=== PATIENT | female | born 1950 | race African-American/Black ===

== ENCOUNTER 2019-07-05 08:40 | Inpatient (IN) | payer MEDICARE, MEDICAID ==
[~2019-07-05] VITALS: Ht 152.4 cm; Wt 104.3 kg
[~2019-07-05 08:40] MED LIST: ASPI-1393 PO; ATOR40TA70 PO; B12/1TAB PO; BACL-141 PO; CELE200C PO; CHLO25TA27 PO; DICL75TA5 PO; DONE10TA43 PO; DOXA2TAB PO; FURO-151 PO; GABA-531 PO; HYDR-3933 PO; ISOS20TA8 PO; ISOS40TA17 PO; LISI40TA4 PO; NIFE30TA8 PO; NIFE60TA78; POTA10CA42 PO; POTA8TAB4; PROT40 PO; QUET50TA PO; SERT-112 PO; ZOLP10TA6 PO
[2019-07-05] MEDS ORDERED: SODIUM CHLORIDE 0.9% 1000ML BAG (SEPSIS BOLUS) IV ONE (09:00)
[2019-07-05] MEDS ORDERED: VANCOMYCIN 1 G PREMIX 200 ML IV ONE (09:00)
[2019-07-05] MEDS ORDERED: PIPERACILLIN/TAZ 3.375G PREMIX 50 ML IV ONE (09:00)
[2019-07-05 09:28] LABS: BASOPHILS % 0.4 % (0.0-2.0); HEMATOCRIT. 28.9 % (36.0-48.0); HEMOGLOBIN. 9.2 g/dL (12.0-16.0); LYMPHOCYTES % 16.5 % (20.0-50.0); MEAN CORPUSCULAR HEMOGLOBIN 26.4 pg (28.0-32.0); MEAN CORPUSCULAR VOLUME 82.6 fL (81.0-99.0); MEAN PLATELET VOLUME 8.2 fl (7.4-10.4); MONOCYTES % 4.7 % (2.0-8.0); NEUTROPHILS % 77.4 % (40.0-76.0); PLATELET 255 x1000/uL (130-400); RED CELL DISTRIBUTION WIDTH 16.8 % (11.6-14.6)
[2019-07-05 09:30] LABS: CHLORIDE 109 mEq/L (98-107)
[2019-07-05 10:54] LABS: CLARITY URINE CLOUDY (CLEAR); COLOR URINE YELLOW (YELLOW); KETONES URINE NEGATIVE (NEGATIVE); LEUKOCYTE ESTERASE URINE NEGATIVE (NEGATIVE); NITRITE URINE NEGATIVE (NEGATIVE); OCCULT BLOOD URINE NEGATIVE (NEGATIVE); PROTEIN URINE NEGATIVE (NEGATIVE); SPECIFIC GRAVITY URINE 1.011 (1.005-1.030)
[2019-07-05] MEDS ORDERED: CLONIDINE 0.1MG TABLET PO PRN (11:15)
[2019-07-05] MEDS ORDERED: ACETAMINOPHEN 325MG TABLET PO PRN (11:15)
[2019-07-05] MEDS ORDERED: DOCUSATE SODIUM 100MG CAPSULE PO PRN (11:15)
[2019-07-05 12:00] VITALS: BP 153/69
[2019-07-05 12:43] VITALS: BP 153/69
[2019-07-05] MEDS: IPRATROPIUM/ALBUTEROL 0.5-3(2.5)MG/3ML NEB HHN SCH ×2 (12:55→21:09)
[2019-07-05] MEDS ORDERED: COM10 MT (13:55)
[2019-07-05] MEDS ORDERED: PRED10TA23 MT (13:55)
[2019-07-05] MEDS ORDERED: PIPERACILLIN/TAZ 3.375G PREMIX 50 ML IV SCH (14:00)
[2019-07-05] MEDS ORDERED: PNEUMOCOCCAL 23-VAL P-SAC VAC 0.5 ML IM ONE (15:00)
[2019-07-05] MEDS: HYDROCODONE/ACETAMINOPHEN 10/325MG TABLET PO PRN ×2 (15:17→23:22)
[2019-07-05] MEDS: ENOXAPARIN 40MG/0.4ML SYR SUBCUT SCH (15:18)
[2019-07-05] MEDS: SODIUM CHLORIDE 0.45% 1,000 ML IV SCH (15:20)
[2019-07-05 16:00] VITALS: BP 107/44
[2019-07-05] MEDS: PIPERACILLIN/TAZOBACTAM 2.25 G in DEXTROSE 5% WATER 50 ML IV SCH (18:14)
[2019-07-05 20:44] VITALS: BP 121/61
[2019-07-06 00:44] VITALS: BP 124/61
[2019-07-06] MEDS: SODIUM CHLORIDE 0.45% 1,000 ML IV SCH ×2 (01:04→14:00)
[2019-07-06] MEDS: PIPERACILLIN/TAZOBACTAM 2.25 G in DEXTROSE 5% WATER 50 ML IV SCH ×3 (02:11→17:28)
[2019-07-06] MEDS: IPRATROPIUM/ALBUTEROL 0.5-3(2.5)MG/3ML NEB HHN SCH ×4 (02:24→20:43)
[2019-07-06 04:40] VITALS: BP 125/63
[2019-07-06 06:55] LABS: CHLORIDE 109 mEq/L (98-107)
[2019-07-06 07:16] LABS: BASOPHILS % 0.4 % (0.0-2.0); EOSINOPHILS % 1.4 % (0.0-5.0); HEMATOCRIT. 25.9 % (36.0-48.0); HEMOGLOBIN. 8.4 g/dL (12.0-16.0); LYMPHOCYTES % 25.7 % (20.0-50.0); MEAN CORPUSCULAR HEMOGLOBIN 26.2 pg (28.0-32.0); MEAN CORPUSCULAR VOLUME 81.2 fL (81.0-99.0); MEAN PLATELET VOLUME 8.5 fl (7.4-10.4); MONOCYTES % 8.1 % (2.0-8.0); NEUTROPHILS % 64.4 % (40.0-76.0); PLATELET 238 x1000/uL (130-400); RED CELL DISTRIBUTION WIDTH 16.4 % (11.6-14.6)
[2019-07-06 07:35] LABS: LDL CHOLESTEROL 42 mg/dL (5-100)
[2019-07-06 07:37] LABS: HDL CHOLESTEROL 50 mg/dL (40-59)
[2019-07-06 08:43] VITALS: BP 115/85
[2019-07-06 08:54] VITALS: BP 133/68
[2019-07-06] MEDS: ONDANSETRON HCL 4MG/2ML INJ IV PRN ×2 (09:41→20:35)
[2019-07-06] MEDS ORDERED: SODIUM BICARBONATE 4% (2.4MEQ) 5ML VIAL IV ONE (12:14)
[2019-07-06] MEDS ORDERED: LIDOCAINE HCL 1% 20ML VIAL (Pyxis) INJ ONE (12:15)
[2019-07-06 12:32] LABS: TOTAL IRON BINDING CAPACITY 196 ug/dL (250-450)
[2019-07-06] MEDS: ENOXAPARIN 40MG/0.4ML SYR SUBCUT SCH (13:59)
[2019-07-06] MEDS: HYDROCODONE/ACETAMINOPHEN 10/325MG TABLET PO PRN ×2 (14:00→21:23)
[2019-07-06 16:20] VITALS: BP 162/75
[2019-07-06 16:30] LABS: PARTIAL THROMBOPLASTIN TIME 25.2 sec (23.4-31.0); PROTHROMBIN TIME 10.5 sec (9.6-11.0)
[2019-07-06 20:00] VITALS: BP 137/58
[2019-07-06] MEDS ORDERED: ZOLPIDEM TARTRATE 5MG TABLET PO PRN (21:00)
[2019-07-07] MEDS: SODIUM CHLORIDE 0.45% 1,000 ML IV SCH (00:34)
[2019-07-07] MEDS: IPRATROPIUM/ALBUTEROL 0.5-3(2.5)MG/3ML NEB HHN SCH ×3 (00:37→09:00)
[2019-07-07 00:48] VITALS: BP 134/57
[2019-07-07] MEDS: PIPERACILLIN/TAZOBACTAM 2.25 G in DEXTROSE 5% WATER 50 ML IV SCH (01:30)
[2019-07-07 04:00] VITALS: BP 143/79
[2019-07-07 08:00] VITALS: BP 151/90
[2019-07-07 10:24] LABS: BASOPHILS % 0.4 % (0.0-2.0); EOSINOPHILS % 1.1 % (0.0-5.0); HEMATOCRIT. 29.6 % (36.0-48.0); HEMOGLOBIN. 9.4 g/dL (12.0-16.0); LYMPHOCYTES % 11.4 % (20.0-50.0); MEAN CORPUSCULAR HEMOGLOBIN 25.8 pg (28.0-32.0); MEAN CORPUSCULAR VOLUME 81.1 fL (81.0-99.0); MEAN PLATELET VOLUME 8.8 fl (7.4-10.4); MONOCYTES % 7.1 % (2.0-8.0); PLATELET 261 x1000/uL (130-400); RED BLOOD CELL COUNT 3.65 mill/uL (4.2-5.4); RED CELL DISTRIBUTION WIDTH 16.7 % (11.6-14.6)
[2019-07-07] MEDS: ENOXAPARIN 40MG/0.4ML SYR SUBCUT SCH (12:00)
[2019-07-07 12:04] VITALS: BP 151/66
[2019-07-07 12:40] VITALS: BP 164/81
[2019-07-07 13:49] VITALS: BP 150/80
== END 2019-07-07 13:30 | disposition home or self-care (01) | DRG 73 ==
LOC: ER 08:40 → 6WST 10:39 → EDBEDREQTM 10:44 → EDBEDREQ 10:44 → EDBEDREQSVC 10:44 → ENRESERV 11:05
PROVIDERS: ADMIT Internal Medicine Nephrology; ATTEND Internal Medicine Nephrology
PROC: 02HV33Z Insertion of Infusion Device into Superior Vena Cava, Percutaneous Approach (ICD-10-PCS; principal; 2019-07-06)
PROC: B548ZZA Ultrasonography of Superior Vena Cava, Guidance (ICD-10-PCS; 2019-07-06)
DX: G90.8 Other disorders of autonomic nervous system (principal); E43 Unspecified severe protein-calorie malnutrition; N39.0 Urinary tract infection, site not specified; Z68.41 Body mass index [BMI] 40.0-44.9, adult; I69.354 Hemiplegia and hemiparesis following cerebral infarction affecting left non-dominant side; I69.351 Hemiplegia and hemiparesis following cerebral infarction affecting right dominant side; D64.9 Anemia, unspecified; E66.01 Morbid (severe) obesity due to excess calories; E86.9 Volume depletion, unspecified; I10 Essential (primary) hypertension; M13.0 Polyarthritis, unspecified; Z82.49 Family history of ischemic heart disease and other diseases of the circulatory system; Z96.649 Presence of unspecified artificial hip joint; I95.1 Orthostatic hypotension; E11.9 Type 2 diabetes mellitus without complications; E78.00 Pure hypercholesterolemia, unspecified; E78.5 Hyperlipidemia, unspecified; I25.10 Atherosclerotic heart disease of native coronary artery without angina pectoris; Z90.710 Acquired absence of both cervix and uterus; Z79.84 Long term (current) use of oral hypoglycemic drugs
CPT/HCPCS: 36415; 36573; 71045; 74176; 80048; 80061; 81003; 83540; 83550; 83605; 84484; 90732; 93005; 93306; 93880; 93970; 94640; 97116; 97162; 97166; 97530; 97535; 99285; C1725; C1893; J1650; J2405; J2543; J3370; J3490; J7030; J7060; J7620

== ENCOUNTER 2019-07-10 12:58 | Emergency (ER) | payer MEDICARE, MEDICAID ==
[~2019-07-10] VITALS: Ht 160 cm; Wt 101.0 kg
[~2019-07-10 12:58] MED LIST changes: -B12/1TAB PO; -CHLO25TA27 PO; +COM10 MT; -DICL75TA5 PO; -DONE10TA43 PO; -FURO-151 PO; -NIFE30TA8 PO; -POTA8TAB4; +PRED10TA23 MT; -SERT-112 PO
[2019-07-10] MEDS ORDERED: SODIUM CHLORIDE 0.9% 1,000 ML IV ONE (13:22)
[2019-07-10 15:19] VITALS: BP 147/80
== END 2019-07-10 15:39 | disposition left against medical advice (07) ==
LOC: ER 12:58
DX: R55 Syncope and collapse (principal); M19.90 Unspecified osteoarthritis, unspecified site; I25.10 Atherosclerotic heart disease of native coronary artery without angina pectoris; E11.9 Type 2 diabetes mellitus without complications; E78.00 Pure hypercholesterolemia, unspecified; Z88.6 Allergy status to analgesic agent; Z79.82 Long term (current) use of aspirin; Z90.710 Acquired absence of both cervix and uterus; Z96.649 Presence of unspecified artificial hip joint
CPT/HCPCS: 71045; 93005; 96360; 99284; J7030

== ENCOUNTER 2022-03-07 07:57 | Inpatient (IN) | payer MEDICARE, MEDICAID ==
[~2022-03-07] VITALS: Ht 162.6 cm; Wt 98.4 kg
[~2022-03-07 07:57] MED LIST changes: -ASPI-1393 PO; +ASPI-1497 PO; -GABA-531 PO; +GABA-532 PO; +LISI40TA13 PO; -LISI40TA4 PO
[2022-03-07] MEDS ORDERED: ASPIRIN 81MG TABLET PO ONE (08:45)
[2022-03-07] MEDS ORDERED: NITROGLYCERIN 0.4MG TABLET SL SL PRN (08:45)
[2022-03-07 09:55] LABS: BASOPHILS % 0.7 % (0.0-2.0); EOSINOPHILS % 1.3 % (0.0-5.0); HEMATOCRIT. 30.3 % (36.0-48.0); HEMOGLOBIN. 9.4 g/dL (12.0-16.0); LYMPHOCYTES % 14.6 % (20.0-50.0); MEAN CORPUSCULAR HEMOGLOBIN 23.7 pg (28.0-32.0); MEAN CORPUSCULAR VOLUME 76.3 fL (81.0-99.0); MEAN PLATELET VOLUME 7.9 fl (7.4-10.4); NEUTROPHILS % 76.4 % (40.0-76.0); PLATELET 332 x1000/uL (130-400); RED BLOOD CELL COUNT 3.97 mill/uL (4.2-5.4); RED CELL DISTRIBUTION WIDTH 18.6 % (11.6-14.6)
[2022-03-07 10:03] LABS: CHLORIDE 111 mEq/L (98-107)
[2022-03-07] MEDS ORDERED: VANCOMYCIN 1G PREMIX 200 ML IV NR (14:45)
[2022-03-07] MEDS ORDERED: PIPERACILLIN/TAZ 3.375G PREMIX 50 ML IV NR (14:45)
[2022-03-07] MEDS ORDERED: IPRATROPIUM/ALBUTEROL 0.5-3(2.5)MG/3ML NEB NEB PRN (16:30)
[2022-03-07] MEDS ORDERED: CLONIDINE 0.1MG TABLET PO PRN (16:30)
[2022-03-07] MEDS ORDERED: DOCUSATE SODIUM 100MG CAPSULE PO PRN (16:30)
[2022-03-07] MEDS ORDERED: LORAZEPAM 0.5MG TABLET PO PRN (16:30)
[2022-03-07] MEDS ORDERED: DIPHENHYDRAMINE 50MG/ML VIAL IV PRN (16:30)
[2022-03-07] MEDS ORDERED: ONDANSETRON HCL 4MG/2ML INJ IV PRN (16:30)
[2022-03-07] MEDS ORDERED: NA PHOS,M-B/NA PHOS,DI-BA ENEMA 118ML PR PRN (16:30)
[2022-03-07] MEDS ORDERED: GUAIFENESIN 200MG/10ML SUGAR FREE UDC PO PRN (16:30)
[2022-03-07] MEDS ORDERED: MAGNESIUM/ALUMINUM HYDROXIDE/SIMETHICONE 30ML UDC PO PRN (16:30)
[2022-03-07] MEDS ORDERED: HYDRALAZINE 20MG/ML VIAL IV PRN (16:45)
[2022-03-07] MEDS ORDERED: DEXTROSE 50% WATER 50ML SYRINGE IV PRN (17:00)
[2022-03-07] MEDS ORDERED: LEVOFLOXACIN 500MG PREMIX 100 ML IV NR (17:30)
[2022-03-07] MEDS: INSULIN LISPRO 100 UNITS/ML SUBCUT SCH ×2 (18:20→21:00)
[2022-03-07] MEDS: BLOOD SUGAR DIAGNOSTIC STRIP TEST SCH ×2 (18:56→21:00)
[2022-03-07] MEDS: DILTIAZEM HCL 30MG TABLET PO SCH ×2 (19:10→23:35)
[2022-03-07 22:00] VITALS: BP 150/78
[2022-03-07] MEDS: FAMOTIDINE 20MG TABLET PO SCH (22:21)
[2022-03-07 22:30] VITALS: BP 150/78
[2022-03-07] MEDS: PIPERACILLIN/TAZOBACTAM 3.375 G in DEXTROSE 5% WATER 50 ML IV SCH (23:14)
[2022-03-08 02:37] LABS: CREATINE KINASE 22 IU/L (26-192); CREATINE KINASE MB FRACTION < 1.0 ng/mL (0.5-3.6)
[2022-03-08 04:00] VITALS: BP 153/79
[2022-03-08] MEDS ORDERED: MORPHINE SULFATE 2 MG/ML CPJ (NOT FOR IM USE) IV PRN (04:30)
[2022-03-08] MEDS: PIPERACILLIN/TAZOBACTAM 3.375 G in DEXTROSE 5% WATER 50 ML IV SCH (05:42)
[2022-03-08] MEDS: DILTIAZEM HCL 30MG TABLET PO SCH ×3 (05:43→18:00)
[2022-03-08] MEDS ORDERED: TEMAZEPAM 15MG CAPSULE PO PRN (06:00)
[2022-03-08] MEDS: INSULIN LISPRO 100 UNITS/ML SUBCUT SCH ×4 (06:30→21:00)
[2022-03-08] MEDS: BLOOD SUGAR DIAGNOSTIC STRIP TEST SCH ×4 (06:30→21:00)
[2022-03-08 06:38] LABS: BASOPHILS % 0.5 % (0.0-2.0); EOSINOPHILS % 1.1 % (0.0-5.0); HEMATOCRIT. 29.3 % (36.0-48.0); HEMOGLOBIN. 9.3 g/dL (12.0-16.0); LYMPHOCYTES % 17.4 % (20.0-50.0); MEAN CORPUSCULAR HEMOGLOBIN 24.1 pg (28.0-32.0); MEAN CORPUSCULAR VOLUME 76.1 fL (81.0-99.0); MEAN PLATELET VOLUME 7.7 fl (7.4-10.4); MONOCYTES % 4.9 % (2.0-8.0); NEUTROPHILS % 76.1 % (40.0-76.0); PLATELET 293 x1000/uL (130-400); RED BLOOD CELL COUNT 3.85 mill/uL (4.2-5.4); RED CELL DISTRIBUTION WIDTH 18.5 % (11.6-14.6)
[2022-03-08 07:00] LABS: CHLORIDE 109 mEq/L (98-107)
[2022-03-08 07:16] LABS: CREATINE KINASE 24 IU/L (26-192); CREATINE KINASE MB FRACTION < 1.0 ng/mL (0.5-3.6)
[2022-03-08 08:00] VITALS: BP 155/66
[2022-03-08] MEDS: ASPIRIN 81MG EC TABLET PO SCH (10:12)
[2022-03-08 11:32] LABS: BG BASE EXCESS -1.8 mmol/L (-2.0-2.0); BG CARBOXYHEMOGLOBIN 0.3 % (0.5-1.5); BG FRACTION INSPIRED OXYGEN 21; BG METHEMOGLOBIN 0.3 % (0.0-1.5); BG OXYHEMOGLOBIN 93.4 % (94.0-97.0); BG PCO2 33.9 mmHg (35.0-45.0); BG PH 7.431 (7.350-7.450); BG PO2 70.3 mmHg (75.0-100.0); BG SAMPLE SITE RIGHT RADIAL; BG TOTAL HEMOGLOBIN 10.1 g/dL (12.0-18.0); BG VENT MODE ROOM AIR
[2022-03-08 12:00] VITALS: BP 143/78
[2022-03-08] MEDS ORDERED: ALBU90AE INH (15:13)
[2022-03-08] MEDS ORDERED: HYDR-4001 MT (15:13)
[2022-03-08] MEDS ORDERED: LEVO250T58 MT (15:13)
[2022-03-08 16:00] VITALS: BP 159/71
[2022-03-08] MEDS ORDERED: LEVOFLOXACIN 250MG PREMIX 50 ML IV SCH (17:30)
[2022-03-08 20:00] VITALS: BP 128/64
[2022-03-08] MEDS: FAMOTIDINE 20MG TABLET PO SCH (22:21)
[2022-03-09] VITALS: BP 117/52
[2022-03-09 04:00] VITALS: BP 139/61
[2022-03-09] MEDS: DILTIAZEM HCL 30MG TABLET PO SCH ×3 (06:17→13:34)
[2022-03-09] MEDS: BLOOD SUGAR DIAGNOSTIC STRIP TEST SCH ×2 (07:09→12:10)
[2022-03-09] MEDS: INSULIN LISPRO 100 UNITS/ML SUBCUT SCH ×2 (07:10→12:40)
[2022-03-09 08:00] VITALS: BP_SYST 140; BP_SYST 154; BP_DIAS 62; BP_DIAS 83
[2022-03-09] MEDS: ASPIRIN 81MG EC TABLET PO SCH (09:29)
[2022-03-09 12:00] VITALS: BP 148/80
[2022-03-09] MEDS ORDERED: LEVOFLOXACIN 750MG PREMIX 150 ML IV SCH (15:00)
[2022-03-09 15:34] VITALS: BP 151/73
== END 2022-03-09 16:16 | disposition home or self-care (01) | DRG 205 ==
LOC: ER 07:57 → 8WST 15:24 → SUPCPDRO 16:43 → ENRESERV 16:53
PROVIDERS: ADMIT Internal Medicine; ATTEND Internal Medicine
DX: S22.32XA Fracture of one rib, left side, initial encounter for closed fracture (principal); J18.9 Pneumonia, unspecified organism; D64.9 Anemia, unspecified; E11.9 Type 2 diabetes mellitus without complications; E78.5 Hyperlipidemia, unspecified; I10 Essential (primary) hypertension; I27.20 Pulmonary hypertension, unspecified; I49.8 Other specified cardiac arrhythmias; I25.10 Atherosclerotic heart disease of native coronary artery without angina pectoris; E66.01 Morbid (severe) obesity due to excess calories; M19.90 Unspecified osteoarthritis, unspecified site; E78.00 Pure hypercholesterolemia, unspecified; Z90.710 Acquired absence of both cervix and uterus; Z88.8 Allergy status to other drugs, medicaments and biological substances; Z83.3 Family history of diabetes mellitus; Z68.37 Body mass index [BMI] 37.0-37.9, adult; W18.30XA Fall on same level, unspecified, initial encounter; Y93.89 Activity, other specified; Y92.89 Other specified places as the place of occurrence of the external cause; Y99.8 Other external cause status; R77.8 Other specified abnormalities of plasma proteins
CPT/HCPCS: 36415; 36600; 71045; 71110; 72170; 73030; 78582; 80053; 82375; 82550; 82553; 82805; 82962; 83880; 84443; 84484; 85025; 86850; 86900; 87077; 87804; 93005; 93306; 97162; 99285; A9558; J1956; J2270; J2405; J2543; J3370; J7060

== ENCOUNTER 2022-04-18 12:59 | Inpatient (IN) | payer MEDICARE, MEDICAID ==
[~2022-04-18] VITALS: Ht 152.4 cm; Wt 96.2 kg
[~2022-04-18 12:59] MED LIST changes: +ALBU90AE INH; +HYDR-4001 MT; -ISOS20TA8 PO; +LEVO250T43 MT; -LISI40TA13 PO; -POTA10CA42 PO; -PRED10TA23 MT
[2022-04-18 14:47] LABS: BASOPHILS % 0.6 % (0.0-2.0); EOSINOPHILS % 0.8 % (0.0-5.0); LYMPHOCYTES % 9.8 % (20.0-50.0); MEAN CORPUSCULAR HEMOGLOBIN 22.8 pg (28.0-32.0); MEAN CORPUSCULAR VOLUME 74.5 fL (81.0-99.0); MEAN PLATELET VOLUME 7.8 fl (7.4-10.4); NEUTROPHILS % 84.8 % (40.0-76.0); PLATELET 380 x1000/uL (130-400); RED BLOOD CELL COUNT 2.88 mill/uL (4.2-5.4); RED CELL DISTRIBUTION WIDTH 19.2 % (11.6-14.6)
[2022-04-18 14:58] LABS: HEMATOCRIT. 21.5 % (36.0-48.0); HEMOGLOBIN. 6.6 g/dL (12.0-16.0)
[2022-04-18 15:03] LABS: CHLORIDE 108 mEq/L (98-107)
[2022-04-18 22:55] VITALS: BP 152/80
[2022-04-19] MEDS ORDERED: HYDROCODONE/ACETAMINOPHEN 5/325MG TABLET PO PRN (01:15)
[2022-04-19] MEDS ORDERED: ZOLPIDEM TARTRATE 5MG TABLET PO NR (01:30)
[2022-04-19 04:00] VITALS: BP 167/73
[2022-04-19] MEDS: CLONIDINE 0.1MG TABLET PO PRN (05:35)
[2022-04-19 08:00] VITALS: BP 145/74
[2022-04-19 12:00] VITALS: BP 143/76
[2022-04-19 12:21] LABS: CHLORIDE 107 mEq/L (98-107)
[2022-04-19 12:31] LABS: HDL CHOLESTEROL 65 mg/dL (40-59); LDL CHOLESTEROL 55 mg/dL (5-100)
[2022-04-19 12:42] LABS: BASOPHILS % 0.4 % (0.0-2.0); EOSINOPHILS % 1.2 % (0.0-5.0); HEMATOCRIT. 23.7 % (36.0-48.0); HEMOGLOBIN. 7.5 g/dL (12.0-16.0); LYMPHOCYTES % 15.2 % (20.0-50.0); MEAN CORPUSCULAR HEMOGLOBIN 24.5 pg (28.0-32.0); MEAN CORPUSCULAR VOLUME 77.4 fL (81.0-99.0); NEUTROPHILS % 79.2 % (40.0-76.0); PLATELET 334 x1000/uL (130-400); RED BLOOD CELL COUNT 3.06 mill/uL (4.2-5.4)
[2022-04-19 16:00] VITALS: BP 139/75
[2022-04-19 20:00] VITALS: BP 156/72
[2022-04-19] MEDS ORDERED: NALOXONE HCL 0.4MG/ML VIAL IV PRN (20:00)
[2022-04-19] MEDS ORDERED: NIFEDIPINE XL 60MG TAB PO SCH (21:00)
[2022-04-19] MEDS ORDERED: ZOLPIDEM TARTRATE 5MG TABLET PO SCH (21:00)
[2022-04-20] VITALS (9 sets, daily range): BP systolic 110–163; BP diastolic 61–98
[2022-04-20] MEDS: CLONIDINE 0.1MG TABLET PO PRN (01:08)
[2022-04-20 06:19] LABS: HEMATOCRIT 28.1 % (36.0-48.0); HEMOGLOBIN 9.1 g/dL (12.0-16.0)
== END 2022-04-20 15:40 | disposition home or self-care (01) | DRG 812 ==
LOC: ER 12:59 → 6WST 16:36 → ENRESERV 21:47 → ER 04-19 01:42
PROVIDERS: ADMIT Internal Medicine; ATTEND Internal Medicine
PROC: 30233N1 Transfusion of Nonautologous Red Blood Cells into Peripheral Vein, Percutaneous Approach (ICD-10-PCS; principal; 2022-04-18)
DX: D64.9 Anemia, unspecified (principal); E78.00 Pure hypercholesterolemia, unspecified; J44.9 Chronic obstructive pulmonary disease, unspecified; F32.A Depression, unspecified; K46.9 Unspecified abdominal hernia without obstruction or gangrene; E11.9 Type 2 diabetes mellitus without complications; Z86.73 Personal history of transient ischemic attack (TIA), and cerebral infarction without residual deficits; Z91.81 History of falling; Z88.1 Allergy status to other antibiotic agents; Z82.49 Family history of ischemic heart disease and other diseases of the circulatory system; Z90.710 Acquired absence of both cervix and uterus; Z96.649 Presence of unspecified artificial hip joint; Z96.659 Presence of unspecified artificial knee joint; K44.9 Diaphragmatic hernia without obstruction or gangrene; I11.0 Hypertensive heart disease with heart failure; I50.9 Heart failure, unspecified
CPT/HCPCS: 36415; 71045; 80048; 80053; 80061; 83036; 83880; 84484; 85014; 85018; 85025; 86850; 86870; 86900; 86920; 93005; 99291; P9016

== ENCOUNTER 2024-06-09 13:01 | Inpatient (IN) | payer MEDICARE, MEDICAID ==
[~2024-06-09] VITALS: Ht 162.6 cm; Wt 86.6 kg
[~2024-06-09 13:01] MED LIST changes: -BACL-141 PO; -CELE200C PO; -COM10 MT; +CYCL5TAB PO; +DOXA-14 PO; -DOXA2TAB PO; +ESCI-7 MT; +LANS30CA55 MT; -LEVO250T43 MT; +LISI40TA13 PO; +NIFE-49; -NIFE60TA78; -PROT40 PO; -ZOLP10TA6 PO
[2024-06-09 15:35] LABS: BASOPHILS % 0.5 % (0.0-2.0); EOSINOPHILS % 6.4 % (0.0-5.0); HEMATOCRIT. 33.9 % (36.0-48.0); LYMPHOCYTES % 27.6 % (20.0-50.0); MEAN CORPUSCULAR HEMOGLOBIN 29.5 pg (28.0-32.0); MEAN CORPUSCULAR HGB CONC 32.4 g/dL (31.0-37.0); MEAN CORPUSCULAR VOLUME 91.1 fL (81.0-99.0); MEAN PLATELET VOLUME 8.9 fl (7.4-10.4); MONOCYTES % 6.8 % (2.0-8.0); NEUTROPHILS % 58.7 % (40.0-76.0); PLATELET 180 x1000/uL (130-400); RED BLOOD CELL COUNT 3.73 mill/uL (4.2-5.4); RED CELL DISTRIBUTION WIDTH 14.7 % (11.6-14.6); WHITE BLOOD COUNT 4.7 x1000/uL (4.5-11.0)
[2024-06-09 15:39] LABS: CHLORIDE 108 mEq/L (98-107); SODIUM 141 mEq/L (136-145)
[2024-06-09 15:40] LABS: CALCIUM 9.1 mg/dL (8.7-10.4); CARBON DIOXIDE 26 mEq/L (21-32)
[2024-06-09 15:45] LABS: GLUCOSE 107 mg/dL (70-105); UREA NITROGEN BLOOD 23 mg/dL (9-23)
[2024-06-09 15:47] LABS: ALANINE AMINOTRANSFERASE 19 IU/L (10-49); ALBUMIN 3.5 g/dL (3.2-4.8); ASPARTATE AMINOTRANSFERASE 26 IU/L (<34); BILIRUBIN TOTAL 0.4 mg/dL (0.1-1.0); CREATININE 1.6 mg/dL (0.6-1.0); PROTEIN TOTAL 5.9 g/dL (6.0-8.3)
[2024-06-09 15:50] LABS: TROPONIN I HIGH SENSITIVITY 99 ng/L (3.0-34)
[2024-06-09 15:51] LABS: INR 0.9; PROTHROMBIN TIME 10.5 sec (9.6-11.0)
[2024-06-09 19:09] LABS: TROPONIN I HIGH SENSITIVITY 102 ng/L (3.0-34)
[2024-06-09] MEDS ORDERED: POTASSIUM CHLORIDE 20MEQ TABLET SR PO ONE (19:15)
[2024-06-09] MEDS ORDERED: ASPIRIN 325MG TABLET PO ONE (19:15)
[2024-06-09] MEDS: ASPIRIN 325MG TABLET PO NR (19:15)
[2024-06-09] MEDS: POTASSIUM CHLORIDE 20MEQ TABLET SR PO NR (19:15)
[2024-06-10] MEDS ORDERED: ONDANSETRON HCL 4MG/2ML INJ IV PRN (10:00)
[2024-06-10] MEDS: HYDRALAZINE 20MG/ML VIAL IV NR (10:46)
[2024-06-10] MEDS: POTASSIUM CHLORIDE 20MEQ TABLET SR PO NR (12:26)
[2024-06-10] MEDS: NIFEDIPINE XL 90MG TAB PO SCH (12:27)
[2024-06-10 13:00] VITALS: BP 186/86; PULSE 85; RESP 18; TEMP 36.55848; O2SAT 98
[2024-06-10 14:34] VITALS: BP 187/86; PULSE 83; RESP 18; TEMP 35.8064
[2024-06-10 16:00] VITALS: BP 162/85; PULSE 95; RESP 20; TEMP 36.44736; O2SAT 98
[2024-06-10] MEDS: HYDRALAZINE 20MG/ML VIAL IV PRN (17:38)
[2024-06-10] MEDS: LIDOCAINE 5% PATCH TOP NR (17:38)
[2024-06-10] MEDS: GABAPENTIN 300MG CAPSULE PO SCH (17:38)
[2024-06-10] MEDS: SODIUM CHLORIDE 0.9% 3ML FLUSH IVF SCH (17:38)
[2024-06-10] MEDS ORDERED: ZOLP3.5T4 SL (17:49)
[2024-06-10 19:18] LABS: CHLORIDE 108 mEq/L (98-107); POTASSIUM 3.5 mEq/L (3.5-5.1); SODIUM 139 mEq/L (136-145)
[2024-06-10 19:19] LABS: CALCIUM 9.2 mg/dL (8.7-10.4); CARBON DIOXIDE 22 mEq/L (21-32)
[2024-06-10 19:24] LABS: CREATININE 1.3 mg/dL (0.6-1.0); GLUCOSE 130 mg/dL (70-105); UREA NITROGEN BLOOD 17 mg/dL (9-23)
[2024-06-10 19:50] LABS: HEPATITIS B SURFACE ANTIGEN NEGATIVE (Negative)
[2024-06-10 20:00] VITALS: BP 136/72; PULSE 84; RESP 19; TEMP 36.22512; O2SAT 98
[2024-06-10 20:12] LABS: HEPATITIS C AB NON REACTIVE (Neg) (Negative)
[2024-06-10] MEDS: ATORVASTATIN CALCIUM 40MG TABLET PO SCH (20:54)
[2024-06-11] VITALS: BP 105/70; PULSE 96; RESP 18; TEMP 36.50292; O2SAT 98
[2024-06-11 04:00] VITALS: BP 127/55; PULSE 63; RESP 20; TEMP 35.78064; O2SAT 96
[2024-06-11 08:00] VITALS: BP 114/38; PULSE 78; RESP 16; TEMP 36.114; O2SAT 96
[2024-06-11 10:18] LABS: HEMATOCRIT 33.9 % (36.0-48.0); HEMOGLOBIN 11.3 g/dL (12.0-16.0); MEAN CORPUSCULAR HEMOGLOBIN 30.5 pg (28.0-32.0); MEAN CORPUSCULAR HGB CONC 33.5 g/dL (31.0-37.0); MEAN CORPUSCULAR VOLUME 90.9 fL (81.0-99.0); PLATELET 222 x1000/uL (130-400); RED BLOOD CELL COUNT 3.72 mill/uL (4.2-5.4); RED CELL DISTRIBUTION WIDTH 14.6 % (11.6-14.6); WHITE BLOOD COUNT 6.5 x1000/uL (4.5-11.0)
[2024-06-11 10:34] LABS: CALCIUM 9.5 mg/dL (8.7-10.4); POTASSIUM 3.8 mEq/L (3.5-5.1)
[2024-06-11 10:40] LABS: CREATININE 1.5 mg/dL (0.6-1.0)
[2024-06-11 12:00] VITALS: BP 121/61; PULSE 109; RESP 19; TEMP 36.114; O2SAT 98
[2024-06-11 16:00] VITALS: BP 146/77; PULSE 109; RESP 18; TEMP 36.33624; O2SAT 100
[2024-06-11] MEDS: LIDOCAINE HCL 4% CREAM 76GM TUBE TP PRN (16:37)
[2024-06-11 20:00] VITALS: BP 141/79; PULSE 108; RESP 16; TEMP 36.3918; O2SAT 96
[2024-06-12] VITALS: BP 117/52; PULSE 107; RESP 18; TEMP 36.44736; O2SAT 98
[2024-06-12 04:00] VITALS: BP 117/66; PULSE 107; RESP 18; TEMP 36.33624; O2SAT 95
[2024-06-12 08:00] VITALS: BP 125/71; PULSE 105; RESP 19; TEMP 36.33624; O2SAT 98
[2024-06-12 12:00] VITALS: BP 120/60; PULSE 76; RESP 18; TEMP 36.50292; O2SAT 97
[2024-06-12 16:00] VITALS: BP 113/55; PULSE 80; RESP 18; TEMP 36.44736; O2SAT 100
[2024-06-12 20:00] VITALS: BP 145/62; PULSE 88; RESP 16; TEMP 36.61404; O2SAT 96
[2024-06-12] MEDS: ZOLPIDEM TARTRATE 5MG TABLET PO PRN (22:20)
[2024-06-13] VITALS: BP 144/44; PULSE 79; RESP 16; TEMP 36.61404; O2SAT 99
[2024-06-13 04:00] VITALS: BP 149/76; PULSE 77; RESP 16; TEMP 36.61404; O2SAT 97
[2024-06-13 08:26] VITALS: BP 149/55; PULSE 89; RESP 18; TEMP 36.28068; O2SAT 99
[2024-06-13] MEDS ORDERED: HYDROCODONE/ACETAMINOPHEN 5/325MG TABLET PO PRN (10:00)
[2024-06-13] MEDS ORDERED: DIPHENHYDRAMINE 50MG/ML VIAL IV PRN (11:45)
[2024-06-13 12:00] VITALS: BP 150/75; PULSE 70; RESP 18; TEMP 36.28068; O2SAT 96
[2024-06-13] MEDS: TRAMADOL 50MG TABLET PO PRN (12:13)
[2024-06-13 16:00] VITALS: BP 136/51; PULSE 92; RESP 18; TEMP 36.3918; O2SAT 100; O2SAT 97
[2024-06-13 20:00] VITALS: BP 135/66; PULSE 77; RESP 19; TEMP 36.61404; O2SAT 100
[2024-06-13] MEDS: GABAPENTIN 300MG CAPSULE PO SCH (21:26)
[2024-06-14] VITALS: BP 114/40; PULSE 72; RESP 18; TEMP 36.72516; O2SAT 98
[2024-06-14 04:00] VITALS: BP 127/64; PULSE 63; RESP 18; TEMP 36.50292; O2SAT 98
[2024-06-14 08:00] VITALS: BP 127/66; PULSE 67; RESP 18; TEMP 36.28068; O2SAT 97
[2024-06-14 12:00] VITALS: BP 108/49; PULSE 84; RESP 18; TEMP 36.16956; O2SAT 95
[2024-06-14 16:00] VITALS: BP 124/63; PULSE 83; RESP 18; TEMP 36.114; O2SAT 97
[2024-06-14 20:00] VITALS: BP 132/82; PULSE 91; RESP 20; TEMP 36.50292; O2SAT 99
[2024-06-14] MEDS ORDERED: NALOXONE HCL 0.4MG/ML VIAL IV PRN (20:00)
[2024-06-15] VITALS: BP 135/70; PULSE 77; RESP 20; TEMP 36.3918; O2SAT 96
[2024-06-15 08:00] VITALS: BP 150/75; PULSE 70; RESP 18; TEMP 36.28068; O2SAT 96
[2024-06-15 12:00] VITALS: BP 128/53; PULSE 71; RESP 15; TEMP 36.22512; O2SAT 99
[2024-06-15 16:00] VITALS: BP 131/55; PULSE 72; RESP 16; TEMP 36.16956; O2SAT 100
[2024-06-15 21:25] VITALS: BP 124/71; PULSE 89; TEMP 97.6; O2SAT 99
== END 2024-06-15 20:30 | DRG 640 ==
LOC: ER 13:01 → 5WST 21:05 → EDBEDREQ 21:33 → EDBEDREQTM 21:33 → 7EST 06-10 11:39
PROVIDERS: ADMIT Internal Medicine; ATTEND Internal Medicine
DX: E87.6 Hypokalemia (principal); I21.A1 Myocardial infarction type 2; L89.93 Pressure ulcer of unspecified site, stage 3; N17.9 Acute kidney failure, unspecified; M51.36 Other intervertebral disc degeneration, lumbar region; I48.91 Unspecified atrial fibrillation; F32.A Depression, unspecified; I65.22 Occlusion and stenosis of left carotid artery; N18.30 Chronic kidney disease, stage 3 unspecified; I13.10 Hypertensive heart and chronic kidney disease without heart failure, with stage 1 through stage 4 chronic kidney disease, or unspecified chronic kidney disease; I49.5 Sick sinus syndrome; E78.5 Hyperlipidemia, unspecified; E66.01 Morbid (severe) obesity due to excess calories; G89.29 Other chronic pain; G93.89 Other specified disorders of brain; Z96.653 Presence of artificial knee joint, bilateral; Z96.641 Presence of right artificial hip joint; K44.9 Diaphragmatic hernia without obstruction or gangrene; M48.061 Spinal stenosis, lumbar region without neurogenic claudication; Z95.0 Presence of cardiac pacemaker; Z79.899 Other long term (current) drug therapy; Z82.49 Family history of ischemic heart disease and other diseases of the circulatory system; Z86.73 Personal history of transient ischemic attack (TIA), and cerebral infarction without residual deficits; Z88.6 Allergy status to analgesic agent; Z90.710 Acquired absence of both cervix and uterus; Z68.32 Body mass index [BMI] 32.0-32.9, adult; R62.7 Adult failure to thrive
CPT/HCPCS: 36415; 71045; 72128; 72131; 80048; 80053; 83735; 84484; 85025; 85027; 86705; 86850; 86900; 87340; 93005; 97162; 97530; 99285; C1893; J0360